=== PATIENT | female | born 1985 | race Caucasian/White ===

== ENCOUNTER 2025-09-04 05:37 | Inpatient (IN) ==
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
[2025-09-04] MEDS ORDERED: LACTATED RINGER'S 1,000 ML IV SCH ×2 (05:45→10:29)
[2025-09-04] MEDS: LACTATED RINGER'S 1,000 ML IV SCH (06:00)
[2025-09-04 06:08] LABS: Hematocrit (blood only) 36.8 % (37.0-47.0); Hemoglobin 12.5 g/dL (12.0-16.0); Immature Granulocytes # (auto) 0.03 K/uL (0.01-0.20); Immature Granulocytes % (auto) 0.5 %; Mean Corpuscular Hemoglobin 31.2 pg (25.0-34.0); Mean Corpuscular Volume 91.8 fL (80.0-100.0); Platelet Count 239 K/uL (130-400); RDW Standard Deviation 43.4 fL (36.4-46.3); Red Blood Count 4.01 M/uL (4.20-5.40); White Blood Count 6.08 K/ul (4.8-10.8)
[2025-09-04] MEDS ORDERED: OXYTOCIN 10 UNITS/ML VIAL ONE (06:34)
[2025-09-04] MEDS ORDERED: ONDANSETRON INJ 2 MG/ML 2 ML VIAL ONE (06:34)
[2025-09-04] MEDS ORDERED: DEXAMETHASONE SOD INJ 4 MG/ML VIAL ONE (06:34)
[2025-09-04] MEDS ORDERED: PHENYLEPHRINE HCL 25 MG/250 ML NSS IV ONE (06:34)
[2025-09-04] MEDS ORDERED: MoRPHine SULFATE PF 1 MG/ML 10 ML AMP/VIAL ONE (06:34)
[2025-09-04] MEDS: ACETAMINOPHEN 500 MG TAB PO SCH (06:37)
--- NOTE | 2025-09-04 07:18 | History & Physical Bridge Note ---
Date of Service September 04, 2025 History & Physical Bridge Note I have examined the patient, reviewed the History & Physical and in the interval since the performance of the History & Physical I have noted the following changes of clinical significance: no changes noted
[2025-09-04] MEDS: CITRIC ACID/SODIUM CITRATE 15 ML UDC PO SCH (09:10)
[2025-09-04] MEDS ORDERED: NALOXONE HCL 0.4 MG/1 ML VIAL/CARP IV PRN (10:06)
[2025-09-04] MEDS ORDERED: MoRPHine SULFATE PF 1 MG/ML 10 ML AMP/VIAL INT SPINAL ONE (10:06)
[2025-09-04] MEDS ORDERED: NALOXONE HCL 1 MG in SODIUM CHLORIDE 0.9% 1,000 ML IV PRN (10:06)
[2025-09-04] MEDS ORDERED: NALBUPHINE HCL INJ 10 MG/ML AMP IV PRN (10:06)
[2025-09-04] MEDS ORDERED: diphenhydrAMINE 50 MG/ML VIAL IV PRN (10:06)
[2025-09-04] MEDS ORDERED: PROMETHAZINE 6.25 MG/50.25 ML BAG IV PRN (10:06)
[2025-09-04] MEDS ORDERED: NALOXONE HCL 0.08 MG in SYRINGE 1.8 ML IV PRN (10:06)
[2025-09-04] MEDS ORDERED: LACTATED RINGER'S 500 ML IV PRN (10:06)
[2025-09-04] MEDS: miSOPROStol 200 MCG TAB PR ONE ×2 (10:08→12:05)
[2025-09-04] MEDS ORDERED: NO NARCOTICS OR SEDATIVES SCH (10:15)
[2025-09-04] MEDS ORDERED: SODIUM CHLORIDE 0.9% 1,000 ML IV SCH (10:15)
[2025-09-04] MEDS ORDERED: DC INTRASPINAL MORPHINE SCH (10:15)
--- NOTE | 2025-09-04 10:24 | Operative Report ---
PG Post Operative Report Pre & Post Diagnosis Operation Date: 09/04/25 07:30 Pre-Op Diagnosis: (1) Previous delivery affecting , antepartum: (2) Elderly multigravida: (3) Uterine fibroid: Post-Op Diagnosis: (1) Previous delivery affecting , antepartum: (2) Elderly multigravida: (3) Uterine fibroid: I identified the patient and participated in the time-out.: Yes Procedure Operation Date: 09/04/25 07:30 Actual Procedures p Repeat lower transverse Section (Delivery of Baby Through Abdominal Incision) for delivery of live male child at 0936(Bilateral) - Angela Marino MD, FACOG Surgeon Angela Marino MD, FACOG Switchboard Operator Receptionist Dr. Charles Estimated Blood Loss 313 Findings Consistent with Post-Op Diagnosis viable male infant, apgars 8/9. ovs and tubes wnl. Very thin raúl but no window. Two prominent fibroids--ant, right, lower uterus 5cm and post, right lower uterus 6cm Fluids ivf--1000cc uop--150cc, clear Specimens none Drains palacios Anesthesia Type Spinal Complications none Disposition Accompanied Patient To Recovery: No Disposition: Recovery Room Indications 40yowf with hx of c/s x 2 and fibroids who presents for repeat c/s. Description of Procedure The patient was taken to the operating room where she was identified verbally and by bracelet. She was seated on the operating table where a spinal anesthetic was placed by anesthesia. She was then placed in the supine position with a leftward tilt. A Palacios catheter was placed sterilely. the patient was prepped and draped in a normal standard fashion. the anesthetic was tested and found to be adequate. A time-out was held, identifying correct patient, procedure, positioning and preoperative antibiotics. There were no concerns. A Pfannenstiel skin incision was made with a knife and taken down to the underlying layer of fascia with the knife and Bovie electrocautery. Bleeding was attended to with the Bovie. The fascia was incised in the midline with the knife and taken out laterally with scissors. The superior edge of the fascial incision was grasped, elevated and the underlying layer of rectus muscle was taken off bluntly and with scissors. In a similar fashion, the inferior edge of the fascial incision was grasped, elevated and the underlying layer of rectus muscle was taken off bluntly and with scissors. The muscles were bluntly in the midline. The peritoneum was entered bluntly. The incision was then stretched. The bladder blade was placed. The vesicouterine peritoneum was identified, entered with scissors and taken out laterally with scissors. The bladder flap was created digitally A hysterotomy incision was scored with a knife and the incision was stretched superiorly and inferiorly with the chemical etch operator's fingers. The operators hand was placed into the incision and the head was grasped. The fit was tight so a vacuum was called for, applied and with suction in the green and fundal pressure, the head was delivered. No nuchal cord. The nose and mouth were bulb suctioned. the rest of the was then delivered without difficulty. The nose and mouth were again bulb suctioned. The cord was clamped and cut and the infant was then handed off to the awaiting elderly companion for drying and attention. Cord blood and segment were obtained. The placenta was Manually extracted. The uterus was exteriorized and cleared of all clot and debris with moistened laparotomy sponges. The hysterotomy incision was repaired in one running locked layer. Hemostasis was noted to be good. Posterior cul-de-sac was irrigated and cleared of all clot and debris. The hysterotomy incision was again inspected and found to be hemostatic. the uterus was reinteriorized, after extending the skin and fascia on the left as it was a tight fit. Hysterotomy incision was again inspected and two figure of 8 sutures required for hemostasis. Perclot was then placed over the incision and pressure held for two minutes. Hemostasis was then noted to be good. Rectus muscles were examined and hemostatic. The fascia was then reapproximated with 0 Vicryl starting at the edges and meeting in the midline. The subcuticular tissues were copiously irrigated and bleeding was attended to with cautery. The skin was then closed with 4-0 Vicryl in a subcuticular fashion. All sponge, lap and needle counts were correct times two. Befor moving to the bed, fundal pressure was given and a 50cc clot expressed but no heavy bleeding. 600mcg cytotec placed rectally. The patient was then taken to the recovery room in stable condition. I attest to the content of the Intraoperative Record and any orders documented therein. Any exceptions are noted below. OB Procedure Charges 89565
[2025-09-04] MEDS ORDERED: KETOROLAC 30 MG/ML VIAL IV SCH (10:29)
[2025-09-04] MEDS ORDERED: BENZOCAINE 20% SPRY 85 APPLN/85 GM CAN EXT PRN (10:29)
[2025-09-04] MEDS ORDERED: CALCIUM CARBONATE 500 MG CHEWABLE TAB PO PRN (10:29)
[2025-09-04] MEDS ORDERED: HYDROCORTISONE ACETATE 25 MG SUPP PR PRN (10:29)
[2025-09-04] MEDS ORDERED: SENNA 8.6 MG TAB PO PRN (10:29)
[2025-09-04] MEDS: DIPHTHER/TETAN/PERTUS Vaccine (Tdap, Adol/Adult) 0.5mL IM ONE (10:41)
[2025-09-04] MEDS ORDERED: ACETAMINOPHEN 325 MG TAB PO SCH (10:45)
[2025-09-04] MEDS: KETOROLAC 30 MG/ML VIAL IV SCH (10:46)
--- NOTE | 2025-09-04 11:12 | Anesthesiology Progress Note ---
Date of Service September 04, 2025 Anesthesia Post Procedure Vital Signs Vital Signs: Temp Pulse Resp BP Pulse Ox O2 Del Method 09/04/25 11:11 61 99 09/04/25 11:09 65 121/76 09/04/25 11:06 82 100 09/04/25 11:01 67 99 09/04/25 11:00 60 118/71 09/04/25 10:56 70 99 09/04/25 10:51 63 100 09/04/25 10:49 61 122/67 09/04/25 10:46 62 100 09/04/25 10:41 67 100 09/04/25 10:40 73 121/62 09/04/25 10:36 65 99 09/04/25 10:31 68 99 09/04/25 10:30 97.5 F L 67 16 121/65 100 09/04/25 10:30 67 121/65 09/04/25 10:26 77 99 09/04/25 10:23 71 94 09/04/25 10:21 68 99 09/04/25 10:17 97.5 F L 67 16 128/65 99 09/04/25 10:17 70 128/65 09/04/25 10:16 68 99 09/04/25 10:12 69 121/58 L 09/04/25 10:11 70 99 09/04/25 07:55 16 09/04/25 07:55 16 09/04/25 07:07 75 147/75 H 09/04/25 07:06 98.1 F 75 18 147/75 H 09/04/25 07:06 Room Air 09/04/25 05:52 98.4 F 20 09/04/25 05:50 72 129/75 Pain Intensity Lower Abdomen: Pain Intensity: 4 Transfer of Care Handoff Completed per policy Notes Mental Status: alert / awake / arousable and participated in evaluation Patient Amnestic to Procedure: Yes Nausea / Vomiting: adequately controlled Pain: adequately controlled Airway Patency, RR, SpO2: stable & adequate BP & HR: stable & adequate Hydration State: stable & adequate Neuraxial Anesthesia: was administered and sensory block is resolving Anesthetic Complications: no major complications apparent and Pt Satisfied with anesthetic care
[2025-09-04] MEDS: OXYTOCIN 20 UNITS/LR 1,002 ML IV SCH (12:36)
[2025-09-04] MEDS ORDERED: miSOPROStol 200 MCG TAB ONE (12:43)
[2025-09-04] MEDS: ONDANSETRON INJ 2 MG/ML 2 ML VIAL IV PRN (15:08)
[2025-09-04] MEDS: ACETAMINOPHEN 325 MG TAB PO SCH (16:10)
[2025-09-04] MEDS: SIMETHICONE 80 MG CHEW PO SCH (16:11)
[2025-09-04] MEDS: DOCUSATE SODIUM 100 MG CAP PO SCH (22:24)
[2025-09-05] MEDS ORDERED: diphenhydrAMINE 50 MG/ML VIAL IV PRN (04:07)
[2025-09-05] MEDS ORDERED: PROMETHAZINE 12.5 MG/50.5 ML BAG IV PRN (04:07)
[2025-09-05] MEDS ORDERED: ONDANSETRON INJ 2 MG/ML 2 ML VIAL IV PRN (04:07)
[2025-09-05] MEDS ORDERED: diphenhydrAMINE Capsule 25 MG CAP PO PRN (04:07)
--- NOTE | 2025-09-05 07:14 | Obstetrical Progress Note ---
Date of Service September 05, 2025 Assessment & Plan (1) state: Continue routine care. Subjective Ambulation: ambulating normally Voiding: no voiding problems Passing Gas:: Yes Diet Tolerance:: regular diet Lochia:: Small Feeding Type:: breast feeding Physical Exam Constitutional WD/WN, vitals as above Eyes PERRL, conjunctivae normal, anicteric sclerae Neck normal visual inspection Respiratory normal respiratory effort and able to speak in complete sentences; no respiratory distress and no labored breathing Cardiovascular Rate/Rhythm: regular rate and regular rhythm Extremities: no edema Chest (Breasts) Chest: normal inspection of chest Gastrointestinal (Abdomen) Inspection/Auscultation: abdomen normal to inspection Soft, postgravid Dressing removed, steri strips present and C/D/I Psychiatric A+Ox3, euthymic affect Genitourinary OB Exam Abdomen: + fundal height Fundus: + firm and + relation to umbilicus (fundus just below umbilicus); not tender Results & Data Vital Signs (Past 12 Hours) Vital Signs Temp Pulse Resp BP Pulse Ox O2 Del Method 09/05/25 04:10 18 97 09/05/25 04:10 98.1 F 78 18 103/65 97 Room Air 09/05/25 03:35 18 95 09/05/25 02:32 18 95 09/05/25 01:09 18 95 09/05/25 00:06 18 95 09/04/25 23:00 18 96 09/04/25 22:58 98.6 F 75 18 129/74 96 Room Air 09/04/25 22:02 18 96 09/04/25 21:01 18 97 09/04/25 20:20 18 96
[2025-09-05 07:18] LABS: Hematocrit (blood only) 33.7 % (37.0-47.0); Hemoglobin 11.4 g/dL (12.0-16.0); Immature Granulocytes # (auto) 0.07 K/uL (0.01-0.20); Immature Granulocytes % (auto) 0.6 %; Mean Corpuscular Hemoglobin 30.8 pg (25.0-34.0); Mean Corpuscular Volume 91.1 fL (80.0-100.0); Platelet Count 228 K/uL (130-400); RDW Standard Deviation 41.9 fL (36.4-46.3); Red Blood Count 3.70 M/uL (4.20-5.40); White Blood Count 12.24 K/ul (4.8-10.8)
[2025-09-05] MEDS: FERROUS SULFATE 325 MG TAB PO SCH (09:25)
[2025-09-05] MEDS: MAGNESIUM HYDROXIDE SUSP 30 ML UDC PO PRN (09:25)
[2025-09-05] MEDS: PRENATAL VITAMIN 1 TAB PO SCH (09:25)
[2025-09-05] MEDS: IBUPROFEN 600 MG TAB PO SCH (10:34)
[2025-09-05] MEDS ORDERED: KETOROLAC 30 MG/ML VIAL IV PRN (10:45)
[2025-09-06 06:39] LABS: Hematocrit (blood only) 31.3 % (37.0-47.0); Hemoglobin 10.6 g/dL (12.0-16.0)
--- NOTE | 2025-09-06 09:18 | Obstetrical Progress Note ---
Date of Service September 06, 2025 Assessment & Plan (1) state: Plan Doing well and feels ready for d/c. Instructions given. f/u in 6 weeks for pp check. Instructions given. Day #:: 2 Subjective Ambulation: ambulating normally Voiding: no voiding problems Passing Gas:: Yes Diet Tolerance:: regular diet Lochia:: Small Feeding Type:: breast feeding Pain controlled, gas pain improved. she had an episode last night where she did not feel well, lightheaded. Had elevated blood pressure at that time, but an hour later improved and good overnight. Physical Exam Constitutional WD/WN, vitals as above Cardiovascular Extremities: + edema (tr); no calf tenderness Gastrointestinal (Abdomen) soft, nt, ff/appro tender at u incision c/d/i Psychiatric A+Ox3, euthymic affect Results & Data Vital Signs (Past 12 Hours) Vital Signs Temp Pulse Pulse Resp BP BP Pulse Ox 09/05/25 23:31 36.6 C 74 18 122/75 96 09/05/25 21:20 88 131/78 O2 Del Method 09/05/25 23:31 Room Air 09/05/25 21:20
[2025-09-06] MEDS: IBUPROFEN 600 MG TAB PO PRN (10:09)
[2025-09-06 10:32] VITALS: BP 132/75; PULSE 75; RESP 17; TEMP 98.1; O2SAT 97
[2025-09-06] MEDS ORDERED: ACETAMINOPHEN 325 MG TAB PO PRN (16:45)
--- NOTE | 2025-09-07 13:06 | Discharge Summary ---
Date of Service September 07, 2025 Admission HPI Per Admitting Provider Patient is a 40yowf with iup at 39 2/7 with hx of previous c/s x 2 and fibroids. Presents today for repeat c/s. and Delivery Plans AMA>40@del *Anatomy Scan @ 20wks * Echo 22-24wks - 06/02/25 WNL *Growth scan @32wks--> efw 77% *Weekly NST's @36 wks *Twice weekly NST @38wks *Weekly YESSENIA's @38wks *Deliver by 40 wks Prior x2 *Schedule repeat @ 28wk *Not a candidate *does not want tubal C/S SCHEDULED FOR 09/04/[address] DAVIS AND DR[address] TORRES ASSIST Uterine fibroid *5cm at NOB, Posterior uterus *Reassess at [facility]--one post 6.5cm, one ant 6.5cm *Deliver @ 39wks Reacted poorly to opioids after prior GBS Positive *Treat in Labor OB Labs: Blood Type O Positive 01/26/25 Antibody Screen NEGATIVE 01/26/25 Hgb 12.4 g/dl (12.0-16.0) 06/17/25 Hct 36.9 % (37.0-47.0) L 06/17/25 MCV 90.3 fL (80.0-100.0) 01/26/25 Plt Count 328 K/uL (130-400) 01/26/25 Rubella IgG Antibody Immune (Immune) 01/26/25 Treponema pallidum Ab Negative (Negative) 06/17/25 Hep Bs Antigen Negative (Negative) 01/26/25 Hepatitis C Antibody Negative (Negative) 01/26/25 HIV 1&2 Ab/P24 Ag 4thGn Negative (Negative) 01/26/25 Glucose 1 Hr 50 gm 111 mg/dl (70-130) 06/17/25 OB Optional Labs: Chlamydia trachomatis RNA Not Detected (NotDetected) 01/26/25 Neisseria gonorrhoeae RNA Not Detected (NotDetected) 01/26/25 gbs pos Discharge Data Consultations 09/04/25 05:41 Consult Anesthesiology Stat Procedures Performed Operation Date: 09/04/25 07:30 Actual Procedures p Section (Delivery of Baby Through Abdominal Incision) for delivery of live male child at 0936(Bilateral) - Angela Davis MD, [facility] Course (1) state: (2) Previous delivery affecting , antepartum: Plan Patient underwent a repeat c/s without complications. QBL was 313cc. Her postop course was uncomlicated--tolerated a regular diet, ambulated, voided after removal of her [place] and tolerated oral pain meds. Was d/c home on postop day 2. Discharge h/h was 10.6/31.3. She will f/u in the office in 6 weeks. Instructions reviewed. Coding Level of Care Code None Diagnoses state Z39.2 Previous delivery affecting , antepartum O34.219
== END 2025-09-06 14:00 | disposition home or self-care (01) | DRG 788 ==
LOC: 4S1 05:37 → EDSTATUS 07:30 → 4E2 12:50